=== PATIENT | female | born 1940 | race Caucasian/White ===

== ENCOUNTER 2022-08-22 08:41 | Emergency (ER) | payer OTHER ==
[~2022-08-22] VITALS: Ht 152.4 cm; Wt 75.7 kg
[2022-08-22 09:07] VITALS: BP_SYST 151
[2022-08-22 09:31] VITALS: BP_SYST 135
== END 2022-08-22 09:27 | disposition home or self-care (01) ==
LOC: SED 08:41
DX: R60.9 Edema, unspecified (principal); Z79.899 Other long term (current) drug therapy
CPT/HCPCS: 99283

== ENCOUNTER 2024-01-01 09:38 | Emergency (ER) | payer OTHER ==
[~2024-01-01] VITALS: Ht 152.4 cm; Wt 74.8 kg
[2024-01-01 09:44] VITALS: BP_SYST 134; PULSE 70; RESP 16; TEMP 98.4; O2SAT 97
[2024-01-01] MEDS ORDERED: LORA10TA7 PO (11:38)
[2024-01-01] MEDS ORDERED: PEG15DRO12 EACH EYE (11:38)
[2024-01-01] MEDS ORDERED: OFLO5DRO6 EACH EYE (11:39)
[2024-01-01 11:48] VITALS: BP_SYST 139; PULSE 71; RESP 16; O2SAT 95
== END 2024-01-01 11:45 | disposition home or self-care (01) ==
LOC: SED 09:38
DX: H10.9 Unspecified conjunctivitis (principal); I10 Essential (primary) hypertension
CPT/HCPCS: 73030; 73060; 99284